=== PATIENT | male | born 1950 | race Caucasian/White ===

== ENCOUNTER → 2016-10-30 | Outpatient (CLI) | payer OTHER ==
[~2016-10-30] MED LIST: ALBU1AER9 INH; ALL100 PO; ATEN50TA8 PO; BACL10TA PO; BUPR-79 PO; CHOL400T; CHOLCAP5 PO; CLON1TAB3 PO; CLOP1TAB15 PO; FISHOIL PO; FLM4 PO; FURO80TA63 PO; HYDR-4079 PO; KLN1 PO; LEVO100T7 PO; LISI5TAB3 PO; LORA10CA2 PO; LORA10TA57 PO; LSN20 PO; MAGN400T6 PO; MECL1TAB42 PO; MISCCAP80; MISCCAP80 PO; MULT-1030 PO; MULTTAB58 PO; NEXIUM; NXM/40 PO; OMEG10007 PO; ONDA4TAB46 PO; OXYC-409; OXYC40TA34 PO; OXYM0.0592 NAE; POTA10CA28 PO; POTA10TA PO; PSYL0.524; VNTHFA/IN INH
[2016-10-30 12:50] LABS: BASO % 0.2 %; BASO ABS # 0.01 K/uL (0-0.2); COMPLETE YES; EOS % 4.2 %; HEMATOCRIT 37.3 % (42-52); IG% 0.2 %; LYMPH ABS # 1.73 K/uL (1.2-3.4); MEAN CORPUSCULAR HEMOGLOBIN 31.7 pg (25-34); MEAN CORPUSCULAR HGB CONC 35.7 g/dl (32-36); MEAN PLATELET VOLUME 10.3 fL (7.4-10.4); MONO % 10.2 %; NEUT % 42.2 %; PLATELET COUNT 162 K/uL (130-400); RED BLOOD COUNT 4.19 M/uL (4.7-6.1); WHITE BLOOD COUNT 4.02 K/uL (4.8-10.8)
[2016-10-30 13:15] LABS: ALT/SGPT 58 U/L (12-78); AST/SGOT 30 U/L (15-37); BLOOD UREA NITROGEN 19 mg/dl (7-18); BUN/CREATININE RATIO 17.3 (10-20); CALCIUM 8.6 mg/dl (8.5-10.1); CARBON DIOXIDE 24 mmol/L (21-32); CHLORIDE 104 mmol/L (98-107); CHOLESTEROL 175 mg/dl (0-200); GLUCOSE 120 mg/dl (70-99); SODIUM 139 mmol/L (136-145)
[2016-10-30 13:25] LABS: ALKALINE PHOSPHATASE 96 U/L (45-117); CHOLESTEROL/HDL RATIO 6.5; HDL CHOLESTEROL 27 mg/dl; LDL CHOLESTEROL CALCULATED 84 mg/dl; TRIGLYCERIDES 319 mg/dl (0-150); VERY LOW DENSITY LIPOPROT CALC 64 mg/dl
[2016-10-30 13:43] LABS: ESTIMATED AVERAGE GLUCOSE 114 mg/dl; HA1C FLAG Normal (Normal)
== END | disposition home or self-care (01) ==
LOC: C.LABPBG 09:04
PROVIDERS: ATTEND Internal Medicine
DX: N40.1 Benign prostatic hyperplasia with lower urinary tract symptoms (principal); E03.9 Hypothyroidism, unspecified; Z11.59 Encounter for screening for other viral diseases

== ENCOUNTER → 2016-12-04 | Day surgery (SDC) | payer OTHER ==
[2016-11-23 10:28] VITALS: BMI 31.0
[~2016-12-04] VITALS: Ht 175.3 cm; Wt 97.3 kg
[~2016-12-04] MED LIST changes: -ALBU1AER9 INH; -BUPR-79 PO; -CHOL400T; -CLON1TAB3 PO; -FISHOIL PO; -FURO80TA63 PO; +LIDOCAINE HCL 2% 2 ML VIAL (20MG/ML) ONE; -LISI5TAB3 PO; -LORA10TA57 PO; -MAGN400T6 PO; -MISCCAP80; -MULTTAB58 PO; -NEXIUM; -OXYC-409; -POTA10CA28 PO; +PROPOFOL IV EMULSION 10 MG/ML 20 ML VIAL IV ONE; -PSYL0.524; +SODIUM CHLORIDE 0.9% 500ML 500 ML IV ONE
[2016-12-04 12:12] VITALS: Ht 175.3 cm; Wt 97.3 kg
[2016-12-04 12:18] VITALS: TEMP 36.3
--- NOTE | 2016-12-04 13:01 | Endo History and Physical ---
History & Physical Date of Service: Dec 04, 2016. Chief Complaint: WEIGHT LOSS ANEMIA ABD CRAMPING Referring Physician: DR James GARCIA History of Present Illness 66 yo CM who presents for EGD and Colonoscopy secondary to weight loss, anemia, and abdominal cramping. Past Surgical History Hx Cardiac Surgery: Yes (CARDIAC CATH-NO STENTS) Hx Internal Defibrillator: No Hx Pacemaker: No Hx Abdominal Surgery: Yes (UMBILICAL HERNIA) Hx of Implantable Prosthesis: No Hx Post-Op Nausea and Vomiting: No Hx Cancer Surgery: No Hx Thoracic Surgery: No Hx Orthopedic: Yes (MULTIPLE LUMBAR VERTEBRAL FUSION, LUMBAR LAMINECTOMY) Hx Urinary Tract Surgery: No Family History None Social History Smoking Status: Never Smoker Hx Substance Use: Yes (SEE MED REC) Hx Alcohol Use: No Allergies Coded Allergies: Tetanus Toxoid (Verified Allergy, Intermediate, HIVES,SWELLING, 12/04/16) Prednisone (Verified Adverse Reaction, Intermediate, gastric ulcer, ) Current Medications Reported Home Medications Medications Dose Route/Sig Max Daily Dose Days Date Category Dose Instructions Claritin (Loratadine) 10 Mg Cap 10 Mg PO HS 11/23/16 Reported Nasal [place] (Oxymetazoline Hcl) 0.05 % Spr 1 [place] YURIY DAILY PRN 11/23/16 Reported Ventolin Hfa (Albuterol) 200 Puffs/46561 Mcg Aers 2-4 Puffs INH Q6H PRN 11/23/16 Reported Vitamin D3 (Cholecalciferol) 5,000 Unit Cap 1 Cap PO QAM 11/23/16 Reported Probiotic (Probiotic Product) 1 Cap Cap 1 Cap PO QAM 11/23/16 Reported Zofran (Ondansetron HCl) 4 Mg Tab 4 Mg PO Q8H PRN 11/23/16 Reported Meclizine Hcl 25 Mg Tab 1 Tab PO TID PRN 10 11/23/16 Reported Centrum Men (Multiple Vitamins W/ Minerals) 1 Tab Tab 1 Tab PO QAM 11/23/16 Reported [place]-3 (Fish Oil) 1 Ea Cap 1 Cap PO BID 11/23/16 Reported [place] 10MG/325MG (Acetaminophen/Hydrocodone Bitart) Tab 1-2 Tabs PO Q4H PRN 11/23/16 Reported PRN PAIN Oxycontin (Oxycodone Hcl) 40 Mg Tab 40 Mg PO TID 11/23/16 Reported Nexium (Esomeprazole Magnesium) 40 Mg Capcr 40 Mg PO BID 11/23/16 Reported Levothyroxine Sodium 100 Mcg Tab 1 Tab PO QAM 90 11/23/16 Reported K-Tabs (Potassium Chloride) 10 Meq Tab 1 Tab PO BID 11/23/16 Reported Lisinopril 20 Mg Tab 1 Tab PO QAM 11/23/16 Reported Tamsulosin HCl 0.4 Mg Cap 1 Cap PO HS 11/23/16 Reported Lioresal (Baclofen) 10 Mg Tab 10 Mg PO TID 11/23/16 Reported Plavix (Clopidogrel Bisulfate) 75 Mg Tab 75 Mg PO QPM 12/27/08 Reported Tenormin (Atenolol) 50 Mg Tab 50 Mg PO BID 12/27/08 Reported Zyloprim * (Allopurinol) 100 Mg Tab 100 Mg PO BID 12/27/08 Reported Vital Signs Weight (Kilograms): 97.27 Height (Feet): 5 Height (Inches): 9 Date Time Temp Pulse Resp B/P Pulse Ox O2 Delivery O2 Flow Rate FiO2 12/04/16 12:18 36.3 71 20 180/90 97 Room Air Physical Exam General Appearance: WD/WN, no apparent distress Respiratory/Chest: Auscultation: breath sounds normal Cardiovascular: Heart Auscultation: RRR Abdomen: Bowel Sounds: normal Inspection & Palpation: soft, non-distended, no tenderness, guarding & rebound Assessment and Plan Assessment: 66 yo CM who presents for EGD and Colonoscopy secondary to weight loss, anemia, and abdominal cramping. Plan: Proceed with EGD and colonoscopy.
--- NOTE | 2016-12-04 13:27 | Discharge Instructions ---
Endoscopy Patient Instructions Date / Procedure(s) Performed Dec 04, 2016. Colonoscopy, EGD Allergy Information Coded Allergies: Tetanus Toxoid (Verified Allergy, Intermediate, HIVES,SWELLING, 12/04/16) Prednisone (Verified Adverse Reaction, Intermediate, gastric ulcer, ) Discharge Date / Findings Dec 04, 2016. EGD: Gastritis s/p biopsies Colonoscopy: Diverticulosis and Internal hemorrhoids Medication Instructions Stopped Medication(s): PLAVIX AND FISH OIL Restart Stopped Medication(s): OK to resume all medications today as prescribed Reported Home Medications Medications Dose Route/Sig Max Daily Dose Days Date Category Dose Instructions Claritin (Loratadine) 10 Mg Cap 10 Mg PO HS 11/23/16 Reported Nasal [place] (Oxymetazoline Hcl) 0.05 % Spr 1 [place] YURIY DAILY PRN 11/23/16 Reported Ventolin Hfa (Albuterol) 200 Puffs/32001 Mcg Aers 2-4 Puffs INH Q6H PRN 11/23/16 Reported Vitamin D3 (Cholecalciferol) 5,000 Unit Cap 1 Cap PO QAM 11/23/16 Reported Probiotic (Probiotic Product) 1 Cap Cap 1 Cap PO QAM 11/23/16 Reported Zofran (Ondansetron HCl) 4 Mg Tab 4 Mg PO Q8H PRN 11/23/16 Reported Meclizine Hcl 25 Mg Tab 1 Tab PO TID PRN 10 11/23/16 Reported Centrum Men (Multiple Vitamins W/ Minerals) 1 Tab Tab 1 Tab PO QAM 11/23/16 Reported [place]-3 (Fish Oil) 1 Ea Cap 1 Cap PO BID 11/23/16 Reported [place] 10MG/325MG (Acetaminophen/Hydrocodone Bitart) Tab 1-2 Tabs PO Q4H PRN 11/23/16 Reported PRN PAIN Oxycontin (Oxycodone Hcl) 40 Mg Tab 40 Mg PO TID 11/23/16 Reported Nexium (Esomeprazole Magnesium) 40 Mg Capcr 40 Mg PO BID 11/23/16 Reported Levothyroxine Sodium 100 Mcg Tab 1 Tab PO QAM 90 11/23/16 Reported K-Tabs (Potassium Chloride) 10 Meq Tab 1 Tab PO BID 11/23/16 Reported Lisinopril 20 Mg Tab 1 Tab PO QAM 11/23/16 Reported Tamsulosin HCl 0.4 Mg Cap 1 Cap PO HS 11/23/16 Reported Lioresal (Baclofen) 10 Mg Tab 10 Mg PO TID 11/23/16 Reported Plavix (Clopidogrel Bisulfate) 75 Mg Tab 75 Mg PO QPM 12/27/08 Reported Tenormin (Atenolol) 50 Mg Tab 50 Mg PO BID 12/27/08 Reported Zyloprim * (Allopurinol) 100 Mg Tab 100 Mg PO BID 12/27/08 Reported Provider Instructions Activity Restrictions - No exercising or heavy lifting for 24 hours. - Do not drink alcohol the day of the procedure. - Do not drive a car or operate machinery until the day after the procedure. - Do not make any important decisions or sign important papers in 24 hours after the procedure. Following Day: - Return to full activity which may include returning to work/school. Diet Start your diet with liquids and light foods (jello, soup, juice, toast). Then eat your usual diet if not nauseated. Treatment For Common After Affects For mild abdominal pain, bloating, or excessive gas: - Rest - Eat lightly - Lie on right side Follow-Up Information Follow-up with DR James GARCIA as scheduled Anesthesia Information What You Should Know You have had a procedure that required some medicine to reduce anxiety and discomfort. This treatment is called moderate sedation. After receiving the treatment, you may be sleepy, but you will be able to breathe on your own. The effects of the treatment may last for several hours. Follow these instructions along with Activity/Diet recommendations noted above: * Do NOT do anything where dizziness or clumsiness would be dangerous. * Rest quietly at home today, then you can be up and about tomorrow. * Have a responsible person stay with you the rest of today. * You may have had an I.V. today. If so, you may take the dressing off later today. Recommendations Call your doctor if: * Trouble breathing * Continuous vomiting for more than 24 hours * Temperature above 101 degrees * Severe abdominal pain or bloating * Pain not relieved by pain medicine ordered * There is increased drainage or redness from any incision * A large amount of rectal bleeding greater than 2-3 tablespoons. (If you had a polyp/s removed or have hemorrhoids, a small amount of blood - from the rectum is to be expected.) * You have any unanswered questions or concerns. IN THE EVENT OF A SERIOUS EMERGENCY, GO TO THE NEAREST EMERGENCY ROOM Your discharge instructions were prepared by provider Jordan House. Patient Instructions Signature Page Jonathan Mobley Patient (or Guardian) Signature/Date: I have read and understand the instructions given to me by my caregivers. Caregiver/RN/Doctor Signature/Date: The above-named patient and/or guardian has received patient instructions on this date. + Original Patient Signature Page (only) stays with chart. Please make copy for patient.
--- NOTE | 2016-12-04 13:29 | GI REPORT ---
Procedure Date: 12/04/2016 12:46 PM Procedure: Upper GI endoscopy Indications: Iron deficiency anemia, Weight loss Medicines: Monitored Anesthesia Care Complications: No immediate complications. Estimated Blood Loss: Estimated blood loss: none. Procedure: Pre-Anesthesia Assessment: - Prior to the procedure, a History and Physical was performed, and patient medications and allergies were reviewed. The patient's tolerance of previous anesthesia was also reviewed. The risks and benefits of the procedure and the sedation options and risks were discussed with the patient. All questions were answered, and informed consent was obtained. Prior Anticoagulants: The patient has taken Plavix (clopidogrel), last dose was 5 days prior to procedure. ASA Grade Assessment: III - A patient with severe systemic disease. After reviewing the risks and benefits, the patient was deemed in satisfactory condition to undergo the procedure. After obtaining informed consent, the endoscope was passed under direct vision. Throughout the procedure, the patient's blood pressure, pulse, and oxygen saturations were monitored continuously. The scope was introduced through the mouth, and advanced to the second part of duodenum. The upper GI endoscopy was accomplished without difficulty. The patient tolerated the procedure well. Findings: The esophagus was normal. Localized mild inflammation characterized by erythema was found in the gastric antrum. Biopsies were taken with a cold forceps for histology. The examined duodenum was normal. Impression: - Normal esophagus. - Gastritis. Biopsied. - Normal examined duodenum. Recommendation: - Resume previous diet. - Continue present medications. - Await pathology results. - Return to primary care physician as previously scheduled. Jordan House DO 12/04/2016 1:29:54 PM This report has been signed electronically. Note Initiated On: 12/04/2016 12:46 PM I attest to the content of the Intraoperative Record and orders documented therein, exceptions below
--- NOTE | 2016-12-04 13:32 | GI REPORT ---
Procedure Date: 12/04/2016 1:10 PM Procedure: Colonoscopy Indications: Iron deficiency anemia, Weight loss Medicines: Monitored Anesthesia Care Complications: No immediate complications. Estimated Blood Loss: Estimated blood loss: none. Procedure: Pre-Anesthesia Assessment: - Prior to the procedure, a History and Physical was performed, and patient medications and allergies were reviewed. The patient's tolerance of previous anesthesia was also reviewed. The risks and benefits of the procedure and the sedation options and risks were discussed with the patient. All questions were answered, and informed consent was obtained. Prior Anticoagulants: The patient has taken Plavix (clopidogrel), last dose was 5 days prior to procedure. ASA Grade Assessment: III - A patient with severe systemic disease. After reviewing the risks and benefits, the patient was deemed in satisfactory condition to undergo the procedure. After I obtained informed consent, the scope was passed under direct vision. Throughout the procedure, the patient's blood pressure, pulse, and oxygen saturations were monitored continuously. The scope was introduced through the anus and advanced to the terminal ileum. The colonoscopy was performed without difficulty. The patient tolerated the procedure well. The quality of the bowel preparation was good. The terminal ileum, ileocecal valve, appendiceal orifice, and rectum were photographed. Findings: Multiple small-mouthed diverticula were found in the sigmoid colon. Non-bleeding internal hemorrhoids were found during retroflexion. The hemorrhoids were small. Impression: - Diverticulosis in the sigmoid colon. - Non-bleeding internal hemorrhoids. - No specimens collected. Recommendation: - Resume previous diet. - Continue present medications. - Repeat colonoscopy for surveillance based on pathology results. - Return to primary care physician as previously scheduled. Jordan House, 12/04/2016 1:32:09 PM This report has been signed electronically. Note Initiated On: 12/04/2016 1:10 PM I attest to the content of the Intraoperative Record and orders documented therein, exceptions below
--- NOTE | 2016-12-04 13:38 | Anesthesiology Progress Note ---
Anesthesia Post Op Note Date & Time Dec 04, 2016 at 13:38 Vital Signs Pain Intensity: 0 Vital Signs Past 12 Hours Date Time Temp Pulse Resp B/P Pulse Ox O2 Delivery O2 Flow Rate FiO2 12/04/16 13:27 75 20 148/72 95 Room Air 12/04/16 12:18 36.3 71 20 180/90 97 Room Air Notes Mental Status: alert / awake / arousable, participated in evaluation Pt Amnestic to Procedure: Yes Nausea / Vomiting: adequately controlled Pain: adequately controlled Airway Patency, RR, SpO2: stable & adequate BP & HR: stable & adequate Hydration State: stable & adequate Anesthetic Complications: no major complications apparent
[2016-12-04 13:56] VITALS: BP 163/78; PULSE 72; O2SAT 97
== END | disposition home or self-care (01) ==
LOC: C.GI 11:18
PROVIDERS: ATTEND Internal Medicine
DX: K31.89 Other diseases of stomach and duodenum (principal); K29.70 Gastritis, unspecified, without bleeding; D50.9 Iron deficiency anemia, unspecified; R63.4 Abnormal weight loss; K57.30 Diverticulosis of large intestine without perforation or abscess without bleeding; K64.8 Other hemorrhoids

== ENCOUNTER 2016-12-07 20:14 | Observation (INO) | payer OTHER ==
[~2016-12-07] VITALS: Ht 175.3 cm; Wt 100.0 kg
[~2016-12-07 20:14] MED LIST changes: -KLN1 PO; -LIDOCAINE HCL 2% 2 ML VIAL (20MG/ML) ONE; -PROPOFOL IV EMULSION 10 MG/ML 20 ML VIAL IV ONE; -SODIUM CHLORIDE 0.9% 500ML 500 ML IV ONE
[2016-12-07 21:11] LABS: BASO % 0.4 %; BASO ABS # 0.03 K/uL (0-0.2); COMPLETE YES; EOS % 4.6 %; HEMATOCRIT 40.7 % (42-52); IG% 0.1 %; LYMPH % 23.4 %; LYMPH ABS # 1.59 K/uL (1.2-3.4); MEAN CELL VOLUME 85.7 fL (80-100); MEAN CORPUSCULAR HEMOGLOBIN 31.2 pg (25-34); MEAN CORPUSCULAR HGB CONC 36.4 g/dl (32-36); MEAN PLATELET VOLUME 9.5 fL (7.4-10.4); MONO % 7.5 %; PLATELET COUNT 196 K/uL (130-400); RED BLOOD COUNT 4.75 M/uL (4.7-6.1)
[2016-12-07 21:22] LABS: PROTHROMBIN TIME (PATIENT) 10.9 SECONDS (9.0-12.0)
[2016-12-07] MEDS ORDERED: NITROGLYCERIN OINT 2% 1GM PACKET EXT ONE (21:30)
[2016-12-07 21:31] LABS: BUN/CREATININE RATIO 15.1 (10-20); CREATININE 1.3 mg/dl (0.60-1.40); POTASSIUM 4.1 mmol/L (3.5-5.1)
[2016-12-07 21:33] LABS: ALB/GLOB RATIO 1.1 (0.9-2)
--- NOTE | 2016-12-07 21:44 | DIAGNOSTIC IMAGING REPORT ---
CHEST ONE VIEW PORTABLE CLINICAL HISTORY: SOB dyspnea COMPARISON STUDY: 09/09/2012 FINDINGS: The bones soft tissues and hemidiaphragms are normal. The cardiomediastinal silhouette is normal. The lungs are clear. The pulmonary vasculature is normal. IMPRESSION: Negative chest. Electronically signed by: Markie Shoemaker M.D. 12/07/2016 9:42 PM Dictated Date/Time: 12/07/2016 9:42 PM
[2016-12-07] MEDS ORDERED: ALUMINUM/MAGNESIUM/SIMETH (MAALOX MAX) 30 ML UDC PO PRN (22:15)
[2016-12-07] MEDS ORDERED: HYDROCODONE/ACETAMI 10/325 TAB PO PRN (22:15)
[2016-12-07] MEDS ORDERED: NITROGLYCERIN 0.4 MG SL PER TAB CHARGE SL PRN (22:15)
[2016-12-07] MEDS ORDERED: ONDANSETRON INJ 2 MG/ML 2 ML VIAL IV PRN (22:15)
[2016-12-07] MEDS ORDERED: MoRPHine SULFATE 2 MG/ML CARP IV PRN (22:15)
[2016-12-07] MEDS ORDERED: MECLIZINE HCL 12.5 MG TAB PO PRN (22:15)
[2016-12-07] MEDS ORDERED: POLYETHYLENE (MIRALAX) 17 GM PACK PO PRN (22:15)
[2016-12-07] MEDS ORDERED: ALBUTEROL HFA 8 GM INHALER INH PRN (22:15)
[2016-12-07] MEDS ORDERED: ACETAMINOPHEN 325 MG TAB PO PRN (22:15)
[2016-12-07] MEDS ORDERED: MAGNESIUM HYDROXIDE SUSP 30 ML UDC PO PRN (22:15)
--- NOTE | 2016-12-07 22:27 | History and Physical ---
History & Physical Date & Time of Service: Dec 07, 2016 at 22:22 Chief Complaint: SOB Primary Care Physician: Yaya Montilla M.D. History of Present Illness Source: patient 66 y/o M w/Hx HTN, HPL, multiple TIAs - presents with intermittent L sided CP x 1 day associated with SOB. Denies N/V, diaphoresis or lightheadedness, denies radiation of the pain. Past Medical/Surgical History Medical Problems: (1) ANGINA PECTORIS NEC/NOS Status: Chronic (2) ANKYLOSING SPONDYLITIS Status: Chronic (3) ANXIETY STATE NOS Status: Chronic (4) ATROPHIC GASTRITIS, WITHOUT MENTION OF HEMORRHAGE Status: Chronic (5) CERVICAL DISC DEGEN Status: Chronic (6) CHRONIC LIVER DIS NEC Status: Chronic (7) DEPRESSIVE DISORDER NEC Status: Chronic (8) DIAB ROSHAN WO COMPL, TYPE II OR UNSPEC TYPE, NOT UNCNTRLD Status: Chronic (9) DIAPHRAGMATIC HERNIA Status: Chronic (10) GOUT NOS Status: Chronic (11) HYPERLIPIDEMIA NEC/NOS Status: Chronic (12) HYPERTENSION NOS Status: Chronic (13) HYPERTROPHY (BENIGN) OF PROSTATE W/O URINARY OBST & OTH LUTS Status: Chronic (14) IDIOPATHIC SCOLIOSIS Status: Chronic (15) PERSONAL HX OF TIA,& 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 (16) POSTLAMINECT SYND-LUMBAR Status: Chronic (17) REFLUX ESOPHAGITIS Status: Chronic (18) SPINAL STENOSIS, LUMBAR REG, W/OUT NEUROGENIC CLAUDICATION Status: Chronic (19) STOMACH ULCER NOS Status: Chronic Family History Heart disease Early CAD Social History Smoking Status: Never Smoker Marital Status: Immunizations History of Influenza Vaccine: Yes History of Tetanus Vaccine?: ALLERGIC History of Pneumococcal: Yes History of Hepatitis B Vaccine: No Multi-Drug Resistant Organisms History of MDRO: No Allergies Coded Allergies: Tetanus Toxoid (Verified Allergy, Intermediate, HIVES,SWELLING, 12/04/16) Prednisone (Verified Adverse Reaction, Intermediate, gastric ulcer, ) Home Medications Scheduled Allopurinol (Zyloprim *), 100 MG PO BID Atenolol (Tenormin), 50 MG PO BID Baclofen (Lioresal), 10 MG PO TID Cholecalciferol (Vitamin D3), 1 CAP PO QAM Clopidogrel (Plavix), 75 MG PO QPM Esomeprazole Magnesium (Nexium), 40 MG PO BID Fish Oil ([place]-3), 1 CAP PO BID Levothyroxine Sodium (Levothyroxine Sodium), 1 TAB PO QAM Lisinopril (Lisinopril), 1 TAB PO QAM Loratadine (Claritin), 10 MG PO HS Multiple Vitamins W/ Minerals (Centrum Men), 1 TAB PO QAM Oxycodone Hcl (Oxycontin), 40 MG PO TID Potassium Chloride (K-Tabs), 1 TAB PO BID Probiotic Product (Probiotic), 1 CAP PO QAM Tamsulosin HCl (Tamsulosin HCl), 1 CAP PO HS Scheduled PRN Albuterol Hfa (Ventolin Hfa), 2-4 PUFFS INH Q6H PRN for Shortness of Breath Hydrocodone/Acetaminophen 10MG/325MG ([place] 10MG/325MG), 1-2 TABS PO Q4H PRN for Pain Meclizine Hcl (Meclizine Hcl), 1 TAB PO TID PRN for [place]IG[place] Ondansetron Hcl (Zofran), 4 MG PO Q8H PRN for Nausea Oxymetazoline Hcl (Nasal [place]), 1 [place] YURIY DAILY PRN for PRN Review of Systems Constitutional: No chills, No fever, No sweats Eyes: No eye pain, No worsening of vision ENT: No hearing loss, No nasal symptoms, No unusual epistaxis Respiratory: + shortness of breath, No cough, No sputum, No wheezing Cardiovascular: + chest pain, No PND, No orthopnea Abdomen: No nausea, No pain, No vomiting Musculoskeletal: No joint pain, No muscle pain Genitourinary - Male: No dysuria, No hematuria, No urinary frequency, No urinary urgency Neurologic: No memory loss, No paralysis, No weakness Psychiatric: No depression symptoms Endocrine: No fatigue Hematologic / Lymphatic: No abnormal bleeding/bruising Integumentary: No rash Allergic / Immunologic: No environmental allergies Physical Exam Vital Signs Date Time Temp Pulse Resp B/P Pulse Ox O2 Delivery O2 Flow Rate FiO2 12/07/16 22:05 55 18 147/89 94 Room Air 12/07/16 21:35 54 12 145/81 96 Room Air 12/07/16 21:30 54 12 96 12/07/16 21:00 56 14 93 12/07/16 20:53 58 12/07/16 20:18 37.1 72 18 114/76 97 Room Air General Appearance: WD/WN, no apparent distress Head: normocephalic, atraumatic Eyes: normal inspection, PERRL, EOMI ENT: normal ENT inspection, hearing grossly normal, TMs normal, pharynx normal Neck: supple, no adenopathy, thyroid normal, no JVD Respiratory/Chest: chest non-tender, lungs clear, normal breath sounds, no respiratory distress, no accessory muscle use Cardiovascular: regular rate, rhythm, no edema, no gallop, no JVD, no murmur, normal peripheral pulses Abdomen/GI: normal bowel sounds, non tender, soft Back: normal inspection, no CVA tenderness, no muscle spasm, normal range of motion Extremities/Musculoskelatal: normal inspection, no calf tenderness, normal capillary refill, no pedal edema, normal range of motion 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, no motor/sensory deficits, alert, normal mood/affect, normal reflexes, oriented x 3 Skin: normal color, warm/dry, no rash Diagnostics Laboratory Results Results Past 24 Hours Test 12/07/16 20:45 12/07/16 21:34 Range/Units White Blood Count 6.80 4.8-10.8 K/uL Red Blood Count 4.75 4.7-6.1 M/uL Hemoglobin 14.8 14.0-18.0 g/dL Hematocrit 40.7 42-52 % Mean Corpuscular Volume 85.7 80-100 fL Mean Corpuscular Hemoglobin 31.2 25-34 pg Mean Corpuscular Hemoglobin Concent 36.4 32-36 g/dl Platelet Count 196 130-400 K/uL Mean Platelet Volume 9.5 7.4-10.4 fL Neutrophils (%) (Auto) 64.0 % Lymphocytes (%) (Auto) 23.4 % Monocytes (%) (Auto) 7.5 % Eosinophils (%) (Auto) 4.6 % Basophils (%) (Auto) 0.4 % Neutrophils # (Auto) 4.35 1.4-6.5 K/uL Lymphocytes # (Auto) 1.59 1.2-3.4 K/uL Monocytes # (Auto) 0.51 0.11-0.59 K/uL Eosinophils # (Auto) 0.31 0-0.5 K/uL Basophils # (Auto) 0.03 0-0.2 K/uL RDW Standard Deviation 41.3 36.4-46.3 fL RDW Coefficient of Variation 13.3 11.5-14.5 % Immature Granulocyte % (Auto) 0.1 % Immature Granulocyte # (Auto) 0.01 0.00-0.02 K/uL Prothrombin Time 10.9 9.0-12.0 SECONDS Prothromb Time International Ratio 1.0 0.9-1.1 Activated Partial Thromboplast Time 25.4 21.0-31.0 SECONDS Partial Thromboplastin Ratio 1.0 Sodium Level 140 136-145 mmol/L Potassium Level 4.1 3.5-5.1 mmol/L Chloride Level 106 98-107 mmol/L Carbon Dioxide Level 26 21-32 mmol/L Anion Gap 8.0 3-11 mmol/L Blood Urea Nitrogen 20 7-18 mg/dl Creatinine 1.30 0.60-1.40 mg/dl Est Creatinine Clear Calc Drug Dose 66.0 ml/min Estimated GFR () 65.4 Estimated GFR (Non- 56.5 BUN/Creatinine Ratio 15.1 10-20 Random Glucose 133 70-99 mg/dl Calcium Level 9.0 8.5-10.1 mg/dl Total Bilirubin 0.3 0.2-1 mg/dl Aspartate Amino Transf (AST/SGOT) 28 15-37 U/L Alanine Aminotransferase (ALT/SGPT) 54 12-78 U/L Alkaline Phosphatase 106 45-117 U/L Total Protein 7.4 6.4-8.2 gm/dl Albumin 3.8 3.4-5.0 gm/dl Globulin 3.6 2.5-4.0 gm/dl Albumin/Globulin Ratio 1.1 0.9-2 Bedside Troponin I 0.000 0-0.045 ng/ml EKG NSR - first degree AV block Impression Assessment and Plan 66 y/o M w/Hx HTN, HPL, multiple TIAs - presents with intermittent L sided CP x 1 day associated with SOB. Denies N/V, diaphoresis or lightheadedness, denies radiation of the pain. Level of Care Telemetry Resuscitation Status FULL RESUSCITATION VTE Prophylaxis VTE Risk Assessment Done? Y/N: Yes Risk Level: Moderate Given or contraindicated: Unfractionated heparin SQ
--- NOTE | 2016-12-07 23:12 | EMERGENCY ROOM VISIT NOTE ---
History Report prepared by Guillermina: Levy Neumann Under the Supervision of: Dr. Al Florence M.D. First contact with patient: 21:14 Chief Complaint: SHORTNESS OF BREATH Stated Complaint: SOB Nursing Triage Summary: pt c/o sob today, heavy feeling in chest and htn History of Present Illness The patient is a 66 year old male who presents to the Emergency Room with complaints of intermittent left-sided chest pressure since yesterday. The patient had the pain when he woke up this morning. The pain is not exertional and is rated 5/10 in severity. The patient was also short of breath at home today. He notes that his blood pressure was increasing today which he thinks could be due to nerves. The patient denies diaphoresis or nausea. He also denies any recent fevers or cold symptoms. The patient had nitroglycerin at home that was leftover from previous angina episodes. He is not on any erectile dysfunction drugs. He had a catheterization in 2004 that was normal for his age. He has a family history of heart disease. His father had heart problems in his 30s. His mother also had heart problems but in her 50s. He has a history of hypertension and denies any history of diabetes. He follows up with Dr. Montilla. Source of History: patient Onset: yesterday Position: chest (left) Symptom Intensity: 5/10 Quality: pressure Timing: intermittent Associated Symptoms: + SOB, No diaphoresis, No fevers, No nausea Review of Systems See HPI for pertinent positives & negatives. A total of 10 systems reviewed and were otherwise negative. 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 (18) REFLUX ESOPHAGITIS (19) SPINAL STENOSIS, LUMBAR REG, W/OUT NEUROGENIC CLAUDICATION (20) STOMACH ULCER NOS Family History Heart disease Social History Smoking Status: Never Smoker Marital Status: Housing Status: lives with family Current/Historical Medications Scheduled Allopurinol (Zyloprim *), 100 MG PO BID Atenolol (Tenormin), 50 MG PO BID Baclofen (Lioresal), 10 MG PO TID Cholecalciferol (Vitamin D3), 1 CAP PO QAM Clopidogrel (Plavix), 75 MG PO QPM Esomeprazole Magnesium (Nexium), 40 MG PO BID Fish Oil ([place]-3), 1 CAP PO BID Levothyroxine Sodium (Levothyroxine Sodium), 1 TAB PO QAM Lisinopril (Lisinopril), 1 TAB PO QAM Loratadine (Claritin), 10 MG PO HS Multiple Vitamins W/ Minerals (Centrum Men), 1 TAB PO QAM Oxycodone Hcl (Oxycontin), 40 MG PO TID Potassium Chloride (K-Tabs), 1 TAB PO BID Probiotic Product (Probiotic), 1 CAP PO QAM Tamsulosin HCl (Tamsulosin HCl), 1 CAP PO HS Scheduled PRN Albuterol Hfa (Ventolin Hfa), 2-4 PUFFS INH Q6H PRN for Shortness of Breath Hydrocodone/Acetaminophen 10MG/325MG ([place] 10MG/325MG), 1-2 TABS PO Q4H PRN for Pain Meclizine Hcl (Meclizine Hcl), 1 TAB PO TID PRN for VERTIGO Ondansetron Hcl (Zofran), 4 MG PO Q8H PRN for Nausea Oxymetazoline Hcl (Nasal [place]), 1 SPRAY YURIY DAILY PRN for PRN Allergies Coded Allergies: Tetanus Toxoid (Verified Allergy, Intermediate, HIVES,SWELLING, 12/04/16) Prednisone (Verified Adverse Reaction, Intermediate, gastric ulcer, ) Physical Exam Vital Signs Date Time Temp Pulse Resp B/P Pulse Ox O2 Delivery O2 Flow Rate FiO2 12/07/16 22:05 55 18 147/89 94 Room Air 12/07/16 21:35 54 12 145/81 96 Room Air 12/07/16 21:30 54 12 96 12/07/16 21:00 56 14 93 12/07/16 20:53 58 12/07/16 20:18 37.1 72 18 114/76 97 Room Air Physical Exam Constitutional: Vital signs reviewed. Eyes: Pupils are equal round reactive to light. Conjunctiva are noninjected. ENT: Pharynx is clear without erythema or exudate. Mucous membranes are moist. Neck supple without meningeal signs. Respiratory: Clear to auscultation bilaterally. Breath sounds are equal bilaterally. Cardiovascular: Regular rate and rhythm. No rubs or gallops. GI: Soft, nondistended and nontender. Bowel sounds are present. Musculoskeletal: No peripheral edema. No lower extremity tenderness. Integumentary: No cyanosis. Neurological: The patient is awake and alert. No focal deficits. Psychiatric: Normal affect. Medical Decision & Procedures ER Provider Diagnostic Interpretation: X-ray results as stated below per interpretation by me and the radiologist: CHEST ONE VIEW PORTABLE CLINICAL HISTORY: SOB dyspnea COMPARISON STUDY: 09/09/2012 FINDINGS: The bones soft tissues and hemidiaphragms are normal. The cardiomediastinal silhouette is normal. The lungs are clear. The pulmonary vasculature is normal. IMPRESSION: Negative chest. Electronically signed by: Markie Shoemaker M.D. 12/07/2016 9:42 PM Dictated Date/Time: 12/07/2016 9:42 PM Laboratory Results 12/07/16 20:45 Red Blood Count 4.75, Mean Corpuscular Volume 85.7, Mean Corpuscular Hemoglobin 31.2, Mean Corpuscular Hemoglobin Concent 36.4, Mean Platelet Volume 9.5, Neutrophils (%) (Auto) 64.0, Lymphocytes (%) (Auto) 23.4, Monocytes (%) (Auto) 7.5, Eosinophils (%) (Auto) 4.6, Basophils (%) (Auto) 0.4, Neutrophils # (Auto) 4.35, Lymphocytes # (Auto) 1.59, Monocytes # (Auto) 0.51, Eosinophils # (Auto) 0.31, Basophils # (Auto) 0.03 12/07/16 20:45 Test 12/07/16 20:45 12/07/16 21:34 White Blood Count 6.80 K/uL (4.8-10.8) Red Blood Count 4.75 M/uL (4.7-6.1) Hemoglobin 14.8 g/dL (14.0-18.0) Hematocrit 40.7 % (42-52) Mean Corpuscular Volume 85.7 fL (80-100) Mean Corpuscular Hemoglobin 31.2 pg (25-34) Mean Corpuscular Hemoglobin Concent 36.4 g/dl (32-36) Platelet Count 196 K/uL (130-400) Mean Platelet Volume 9.5 fL (7.4-10.4) Neutrophils (%) (Auto) 64.0 % Lymphocytes (%) (Auto) 23.4 % Monocytes (%) (Auto) 7.5 % Eosinophils (%) (Auto) 4.6 % Basophils (%) (Auto) 0.4 % Neutrophils # (Auto) 4.35 K/uL (1.4-6.5) Lymphocytes # (Auto) 1.59 K/uL (1.2-3.4) Monocytes # (Auto) 0.51 K/uL (0.11-0.59) Eosinophils # (Auto) 0.31 K/uL (0-0.5) Basophils # (Auto) 0.03 K/uL (0-0.2) RDW Standard Deviation 41.3 fL (36.4-46.3) RDW Coefficient of Variation 13.3 % (11.5-14.5) Immature Granulocyte % (Auto) 0.1 % Immature Granulocyte # (Auto) 0.01 K/uL (0.00-0.02) Prothrombin Time 10.9 SECONDS (9.0-12.0) Prothromb Time International Ratio 1.0 (0.9-1.1) Activated Partial Thromboplast Time 25.4 SECONDS (21.0-31.0) Partial Thromboplastin Ratio 1.0 Anion Gap 8.0 mmol/L (3-11) Est Creatinine Clear Calc Drug Dose 66.0 ml/min Estimated GFR () 65.4 Estimated GFR (Non- 56.5 BUN/Creatinine Ratio 15.1 (10-20) Calcium Level 9.0 mg/dl (8.5-10.1) Total Bilirubin 0.3 mg/dl (0.2-1) Aspartate Amino Transf (AST/SGOT) 28 U/L (15-37) Alanine Aminotransferase (ALT/SGPT) 54 U/L (12-78) Alkaline Phosphatase 106 U/L (45-117) Troponin I < 0.015 ng/ml (0-0.045) Total Protein 7.4 gm/dl (6.4-8.2) Albumin 3.8 gm/dl (3.4-5.0) Globulin 3.6 gm/dl (2.5-4.0) Albumin/Globulin Ratio 1.1 (0.9-2) Bedside Troponin I 0.000 ng/ml (0-0.045) Laboratory results as reviewed by me. Medications Administered Medications (Trade) Dose Ordered Sig/Martir Route Start Time Stop Time Status Last Admin Dose Admin Nitroglycerin (Nitroglycerin 2% Oint) 1 inch NOW ONCE EXT 12/07/16 21:30 12/07/16 21:31 DC 12/07/16 21:35 1 INCH ECG Indication: chest pain Rate (beats per minute): 59 Rhythm: sinus bradycardia Findings: 1st degree AV block, Q waves (lead III), no ectopy, other (no ST elevation) Change: Q waves and 1st degree AV block were present on EKG from August 2012. ED Course 2116: The patient was evaluated in room C5. A complete history and physical exam was performed. 2129: Nitroglycerin 1 inch EXT. 2139: Spoke with Dr. Bruce, [facility]. The patient will be evaluated. 2149: Checked on the patient. His chest pressure is almost gone. I discussed the test results. Medical Decision This is a 66-year-old male who presents with chest discomfort. Differential diagnosis includes unstable angina, IN, pericarditis, pneumonia, GERD, anxiety. I did perform a limited focused review of portions of the patient's old chart on the electronic medical record. The patient had an EGD on the that showed gastritis. I did evaluate the patient as noted above. The patient is presenting with intermittent chest pressure since yesterday. He does have risk factors for cardiac disease including family history and hypertension. IV access was established. The patient was placed on a continuous monitor tech. I did treat patient with nitroglycerin paste. I did order and personally review the patient's 12-lead EKG and chest x-ray as described above. His 12-lead EKG does not show any acute ischemic changes. I did order and review the patient's blood work as noted in the electronic medical record. Troponin is negative. I did reassess the patient. He states that his chest pain is almost completely relieved with nitroglycerin. I did discuss the test results with the patient and recommended hospitalization for further care and evaluation. I did discuss case with the hospitalist and corrections caseworker. Consults Time Called: 2129 Consulting Physician: Dr. Bruce, [facility]. Returned Call: [phone]: Spoke with Dr. Bruce [facility]. The patient will be evaluated. Impression Primary Impression: Left sided chest pain Scribe Attestation The scribe's documentation has been prepared under my direct and personally reviewed by me in its entirety. I confirm that the note above accurately reflects all work, treatment, procedures, and medical decision making performed by me. Departure Information Dispostion Being Evaluated By Hospitalist Referrals Yaya Montilla M.D. (PCP) Patient Instructions My [facility]
[2016-12-08] VITALS (7 sets, daily range): BP systolic 104–153; BP diastolic 64–81; PULSE 49–100; TEMP 36.6–36.8; O2SAT 94–98; Ht 175.3 cm; Wt 100.0 kg
--- NOTE | 2016-12-08 01:03 | HISTORY & PHYSICAL EXAMINATION ---
DATE OF ADMISSION: 12/07/2016 REASON FOR ADMISSION: Chest pain. HISTORY OF PRESENT ILLNESS: This is a 66-year-old male with a history of hypertension, hypothyroidism, hyperlipidemia and previous TIAs. The patient developed intermittent left-sided chest pain starting this morning, which he describes as a pressure-like sensation. The pain was nonradiating, associated with shortness of breath. Denies any nausea, vomiting or diaphoresis. He states that he had a normal cardiac catheterization in 2004 and a normal stress test within the last 5 years. It is also noted that the patient had a colonoscopy and endoscopy in 11/2015, which he states was normal other than colitis and mild gastritis. He stated that when he had labs drawn in early October, he was noted to be anemic with hemoglobin in the low 13s; however, it is 14.8 at the time of admission without taking iron or any other interventions. PAST MEDICAL HISTORY: 1. Hypertension. 2. Hyperlipidemia. 3. BPH. 4. Gout. 5. TIAs. 6. Hypothyroidism. 7. The patient has had several back surgeries including lumbar and cervical laminectomies and fusion. 8. He states that he was treated for diabetes for a total of 10 years but did not actually have the disease. He was apparently misdiagnosed by his primary physician. MEDICATIONS: As follows: 1. Albuterol p.r.n. 2. Allopurinol 100 mg b.i.d. 3. Atenolol 50 mg b.i.d. 4. Baclofen 10 mg t.i.d. 5. Vitamin D 5000 units q.a.m. 6. Plavix 75 mg q.p.m. 7. Nexium 40 mg b.i.d. 8. Fish oil 1 capsule b.i.d. 9. [place] 10/325 one to two tablets q. 4 hours. 10. Levothyroxine 100 mcg daily. 11. Lisinopril 20 mg daily. 12. Meclizine 25 mg t.i.d. p.r.n. 13. OxyContin 40 mg p.o. t.i.d. 14. Potassium chloride 10 mEq b.i.d. 15. Probiotic daily. 16. Flomax 0.4 mg at bedtime. SOCIAL HISTORY: The patient does not drink or smoke. FAMILY HISTORY: Reviewed and noncontributory. REVIEW OF SYSTEMS: GENERAL: No fevers or rigors described. CARDIOVASCULAR: Positive for chest pain as above. RESPIRATORY: Positive for shortness of breath accompanying chest pain. No productive cough or wheezing. GASTROINTESTINAL: Denies nausea, vomiting, diarrhea, constipation. All other systems reviewed and negative. PHYSICAL EXAMINATION: VITAL SIGNS: Blood pressure is 144/78, heart rate 55, respirations 18, afebrile, satting 96% on room air. GENERAL: This is a slightly overweight middle-aged male. He is awake, alert, oriented x3, in no distress. HEAD AND NECK: No JVD, bruits, thrush or icterus. HEART: S1, S2, regular. No murmurs. LUNGS: Clear to auscultation bilaterally. ABDOMEN: Nontender, nondistended. Bowel sounds present. EXTREMITIES: Show no clubbing, cyanosis or edema, with positive pulses. NEUROLOGIC: He is ambulatory, maintains his coordination, does not exhibit any focal deficits. SKIN: Negative for rashes or ulcers. LABORATORY DATA: White count 6.8, hemoglobin 14.8, platelets 196. Sodium 140, potassium 4.1, chloride 106, CO2 of 26, BUN 20, creatinine 1.3, glucose 133. Troponin is 0. EKG, normal sinus rhythm with first-degree AV block. ASSESSMENT AND PLAN: This is a 66-year-old male with a medical history of hypertension, hyperlipidemia, previous transient ischemic attack, gout and chronic back pain. He presents with intermittent left-sided chest pain accompanied by shortness of breath. The patient is assigned to telemetry with the followin. Chest pain. We will obtain 3 sets of troponins, monitor on telemetry, and continue Plavix and atenolol. Presumably he is statin intolerant. The patient can be scheduled for an outpatient stress test if his chest pain does not recur and his troponin remains at 0. 2. Hypertension. Continue atenolol and lisinopril. 3. Chronic back pain. We will continue his home dose of oxycodone 40 t.i.d. in addition to hydrocodone p.r.n. 4. Gout. Continue allopurinol. 5. Hypothyroidism. Continue Synthroid. 6. Benign prostatic hyperplasia. Continue Flomax. The patient is a full code. Heparin has been used for prophylaxis. Total time for this admit including chart review, discussion with the ER physician, review of labs, imaging, EKG and previous available records was 36 minutes.
[2016-12-08] MEDS ORDERED: IV FLUIDS COMPLETED PRN (02:00)
[2016-12-08] MEDS: NITROGLYCERIN OINT 2% 1GM PACKET EXT SCH ×3 (04:00→15:23)
[2016-12-08] MEDS: HEPARIN SOD 5000 UNIT/0.5 ML CARP SQ SCH ×2 (06:00→13:15)
[2016-12-08] MEDS ORDERED: LEVOTHYROXINE 100 MCG TAB PO SCH (06:30)
[2016-12-08] MEDS ORDERED: OXYCODONE HCL 20 MG TABCR (OXYCONTIN) PO ONE (07:57)
[2016-12-08] MEDS ORDERED: CLONAZEPAM 0.5 MG TAB PO STA (08:30)
[2016-12-08] MEDS ORDERED: OXYCODONE HCL 20 MG TABCR (OXYCONTIN) PO SCH ×2 (09:00→16:00)
[2016-12-08] MEDS ORDERED: POTASSIUM CHLORIDE 10 MEQ TABCR PO SCH (09:00)
[2016-12-08] MEDS ORDERED: ALLOPURINOL 100 MG TAB PO SCH (09:00)
[2016-12-08] MEDS ORDERED: PANTOprazole SOD 40 MG TAB PO SCH (09:00)
[2016-12-08] MEDS ORDERED: OXYCODONE HCL 40 MG TABCR (OXYCONTIN) PO SCH (09:00)
[2016-12-08] MEDS ORDERED: BACLOFEN 10 MG TAB PO SCH ×2 (09:00→16:00)
[2016-12-08] MEDS ORDERED: CHOLECALCIFEROL 1000 INTER.UNIT TAB PO SCH (09:00)
[2016-12-08] MEDS ORDERED: OMEGA-3 (PURIFIED FISH OIL) 1 GM CAP PO SCH (09:00)
[2016-12-08] MEDS ORDERED: LISINOPRIL 20 MG TAB PO SCH (09:00)
[2016-12-08] MEDS ORDERED: CLONAZEPAM 1 MG TAB PO SCH ×2 (16:00→21:00)
--- NOTE | 2016-12-08 16:21 | ECHOCARDIOGRAM REPORT ---
*NOTICE TO RECEIVING CONSTITUTION PARTY AGENCY This information is strictly Confidential and protected under [place] law. [place] law prohibits you from making any further disclosure of this information unless further disclosure is expressly permitted by the written consent of the person to whom it pertains or is authorized by law. A general authorization for the release of medical or other information is not sufficient for this purpose. Hospital accepts no responsibility if the information is made available to any other person, INCLUDING THE PATIENT. Interpretation Summary * Name: LUIZ MOREJON Study Date: 12/08/2016 01:43 PM BP: 140/71 mmHg * Patient Location: [facility]\S\N288\S\1 HR: 55 * : 1950 (M/d/yyyy) Gender: Male Height: 69 in * Age: 66 yrs Ethnicity: [place] Weight: 220 lb * Ordering Physician: Itz Perla * Referring Physician: Self, Referred * Performed By: Jorge Israel RCS * * Reason For Study: Chest Pain/Pressure * BSA: 2.2 m2 * -- Conclusions -- * Left ventricular systolic function is normal. * The right ventricle is mild to moderately dilated. * Right ventricular systolic pressure is normal. * Grade I diastolic dysfunction, (abnormal relaxation pattern). Procedure Details * A complete two-dimensional transthoracic echocardiogram was performed (2D, M-mode, Doppler and color flow Doppler). Left Ventricle * The left ventricle is normal in size. * There is normal left ventricular wall thickness. * Ejection Fraction = 65-70%. * Left ventricular systolic function is normal. * Grade I diastolic dysfunction, (abnormal relaxation pattern). Right Ventricle * The right ventricle is mild to moderately dilated. * The right ventricular systolic function is normal. Atria * The left atrial size is normal. * Right atrial size is normal. Mitral Valve * The mitral valve anatomy is normal. * There is no mitral regurgitation noted. Tricuspid Valve * The tricuspid valve is not well visualized, but is grossly normal. * There is trace tricuspid regurgitation. * Right ventricular systolic pressure is normal. Aortic Valve * The aortic valve is normal in structure and function. * No hemodynamically significant valvular aortic stenosis. * There is no significant aortic regurgitation. Great Vessels * The aortic root is normal size. Pericardium/Pleural * There is no pericardial effusion. MMode 2D Measurements and Calculations IVSd 1.0 cm IVSs 1.3 cm LVIDd 5.1 cm LVIDs 2.9 cm LVPWd 1.0 cm LVPWs 1.3 cm IVS/LVPW 1.0 FS 42.2 % EDV(Teich) 121.2 ml ESV(Teich) 32.7 ml EF(Teich) 73.0 % EDV(cubed) 129.0 ml ESV(cubed) 24.9 ml EF(cubed) 80.7 % % IVS thick 26.6 % % LVPW thick 28.9 % LV mass(C)d 194.8 grams LV mass(C)dI 90.6 grams/m\S\2 LV mass(C)s 123.9 grams LV mass(C)sI 57.6 grams/m\S\2 CO(Teich) 5.0 l/min CI(Teich) 2.3 l/min/m\S\2 SV(Teich) 88.4 ml SI(Teich) 41.1 ml/m\S\2 CO(cubed) 5.9 l/min CI(cubed) 2.8 l/min/m\S\2 SV(cubed) 104.1 ml SI(cubed) 48.4 ml/m\S\2 Ao root diam 3.7 cm Ao root area 10.9 cm\S\2 ACS 2.0 cm LA dimension 3.9 cm LA/Ao 1.1 LVAd ap4 39.7 cm\S\2 LVLd ap4 8.6 cm EDV(MOD-sp4) 150.0 ml LVAs ap4 21.1 cm\S\2 LVLs ap4 7.5 cm ESV(MOD-sp4) 51.0 ml EF(MOD-sp4) 66.0 % LVAd ap2 38.1 cm\S\2 LVLd ap2 9.2 cm EDV(MOD-sp2) 133.0 ml LVAs ap2 20.0 cm\S\2 LVLs ap2 7.1 cm ESV(MOD-sp2) 48.0 ml EF(MOD-sp2) 63.9 % CO(MOD-sp4) 5.6 l/min CI(MOD-sp4) 2.6 l/min/m\S\2 SV(MOD-sp4) 99.0 ml SI(MOD-sp4) 46.0 ml/m\S\2 CO(MOD-sp2) 4.8 l/min CI(MOD-sp2) 2.3 l/min/m\S\2 SV(MOD-sp2) 85.0 ml SI(MOD-sp2) 39.5 ml/m\S\2 Doppler Measurements and Calculations MV E max chanell 57.7 cm/sec MV A max chanell 71.3 cm/sec MV E/A 0.81 MV P1/2t max chanell 63.3 cm/sec MV P1/2t 90.3 msec MVA(P1/2t) 2.4 cm\S\2 MV dec slope 205.1 cm/sec\S\2 MV dec time 0.33 sec Ao V2 max 135.0 cm/sec Ao max PG 7.3 mmHg Ao max PG (full) 2.8 mmHg LV V1 max PG 4.5 mmHg LV V1 max 106.0 cm/sec PA V2 max 97.2 cm/sec PA max PG 3.8 mmHg TR max chanell 209.0 cm/sec
[2016-12-08] MEDS ORDERED: KLN1 PO (16:34)
--- NOTE | 2016-12-08 16:41 | Discharge Instructions ---
Discharge Instructions Date of Service Dec 08, 2016. Admission Reason for Admission: Chest Pain Discharge Discharge Diagnosis / Problem: chest pain & shortness of breath - resolved; no evidence of heart attack Discharge Goals Goal(s): Learn about illness, Diagnostic testing, Therapeutic intervention Activity Recommendations Activity Limitations: resume your previous activity . Instructions / Follow-Up Instructions / Follow-Up From Dr. Perla: 1. I am concerned that the enlargement of the right side of your heart is due to untreated sleep apnea. Please discuss with Dr. Montilla finishing your sleep study. 2. No medications were changed and/or added during your stay. 3. Once I obtain your heart catheterization report from [facility] I will review this and contact you. 4. Please resume your clonazepam as previous. 5. Return to [facility] with any recurrent chest pain, shortness of breath, rapid heart beating, fever over 100.5 degrees, etc. 6. Please see Dr. Montilla within 1 week. Current Hospital Diet Patient's current hospital diet: AHA Diet (Heart Healthy) Discharge Diet Recommended Diet: AHA Diet (Heart Healthy) Procedures Procedures Performed: echocardiogram - Normal heart function. However, the right side of your heart is mildly enlarged. Heart valves are normal. Pending Studies Studies pending at discharge: no Laboratory Results Hemoglobin A1c Test 10/30/16 09:09 Range/Units Estimated Average Glucose 114 mg/dl Hemoglobin A1c 5.6 4.5-5.6 % Lipid Panel Test 10/30/16 09:09 Range/Units Triglycerides Level 319 H 0-150 mg/dl Cholesterol Level 175 0-200 mg/dl HDL Cholesterol 27 mg/dl Cholesterol/HDL Ratio 6.5 LDL Cholesterol, Calculated 84 mg/dl Medical Emergencies . Who to Call and When: Medical Emergencies: If at any time you feel your situation is an emergency, please call 911 immediately. . Non-Emergent Contact Non-Emergency issues call your: Primary Care Provider Call Non-Emergent contact if: temperature is above 100.5, your pain is worsening, your pain is unusual for you, your pain is concerning you, you have any medication questions . . "Provider Documentation" section prepared by Itz Perla. VTE Core Measure Inpt VTE Proph given/why not?: Unfractionated heparin SQ
[2016-12-08] MEDS ORDERED: CLOPIDOGREL BISULFATE 75 MG TAB PO SCH (21:00)
[2016-12-08] MEDS ORDERED: TAMSULOSIN HCL 0.4 MG CAP PO SCH (21:00)
--- NOTE | 2016-12-09 00:20 | Discharge Summary ---
Discharge Summary Date of Service Dec 09, 2016. Discharge Summary Admission Date: Dec 07, 2016 at 22:17 Discharge Date: Dec 08, 2016 Discharge Disposition: Home Principal Diagnosis: chest pain/pressure - resolved, ACS ruled out Problems/Secondary Diagnoses: 1. Hypertension. 2. Hyperlipidemia. 3. BPH. 4. Gout. 5. h/o TIAs. 6. Hypothyroidism. 7. recently diagnosed MACIEL. 8. right ventricular dilatation, suspect 2nd to #7. 9. anxiety disorder. Immunizations: Have You Had Influenza Vaccine: Yes History of Tetanus Vaccine?: ALLERGIC History of Pneumococcal: Yes History of Hepatitis B Vaccine: No Procedures: echocardiogram: -- Conclusions -- * Left ventricular systolic function is normal with normal wall motion. * The right ventricle is mild to moderately dilated. * Right ventricular systolic pressure is normal. * Grade I diastolic dysfunction, (abnormal relaxation pattern). Medication Reconciliation New Medications: Clonazepam (Clonazepam) 1 Mg Tab 1 MG PO BID, #30 TAB 0 Refills Continued Medications: Albuterol Hfa (Ventolin Hfa) 200 Puffs/05722 Mcg Aers 2-4 PUFFS INH Q6H PRN for Shortness of Breath, #1 INHALER Allopurinol (Zyloprim *) 100 Mg Tab 100 MG PO BID Atenolol (Tenormin) 50 Mg Tab 50 MG PO BID Baclofen (Lioresal) 10 Mg Tab 10 MG PO TID, TAB Cholecalciferol (Vitamin D3) 5,000 Unit Cap 1 CAP PO QAM Clopidogrel (Plavix) 75 Mg Tab 75 MG PO QPM Esomeprazole Magnesium (Nexium) 40 Mg Capcr 40 MG PO BID, CAP Fish Oil ([place]-3) 1 Ea Cap 1 CAP PO BID, CAP Hydrocodone/Acetaminophen 10MG/325MG ([place] 10MG/325MG) Tab 1-2 TABS PO Q4H PRN for Pain, TAB PRN PAIN Levothyroxine Sodium (Levothyroxine Sodium) 100 Mcg Tab 1 TAB PO QAM for 90 Days, #90 TAB 3 Refills Lisinopril (Lisinopril) 20 Mg Tab 1 TAB PO QAM Loratadine (Claritin) 10 Mg Cap 10 MG PO HS, CAP Meclizine Hcl (Meclizine Hcl) 25 Mg Tab 1 TAB PO TID PRN for VERTIGO for 10 Days, #30 TAB Multiple Vitamins W/ Minerals (Centrum Men) 1 Tab Tab 1 TAB PO QAM Ondansetron Hcl (Zofran) 4 Mg Tab 4 MG PO Q8H PRN for Nausea, TAB Oxycodone Hcl (Oxycontin) 40 Mg Tab 40 MG PO TID, TAB Oxymetazoline Hcl (Nasal Viola) 0.05 % Spr 1 SPRAY YURIY DAILY PRN for PRN Potassium Chloride (K-Tabs) 10 Meq Tab 1 TAB PO BID Probiotic Product (Probiotic) 1 Cap Cap 1 CAP PO QAM Tamsulosin HCl (Tamsulosin HCl) 0.4 Mg Cap 1 CAP PO HS Discharge Exam Physical Exam: General Appearance: WD/WN, no apparent distress ENT: pharynx normal Neck: no JVD Respiratory/Chest: chest non-tender, lungs clear, normal breath sounds, no respiratory distress, no accessory muscle use Cardiovascular: no gallop, no murmur, normal peripheral pulses, + bradycardia Abdomen / GI: normal bowel sounds, non tender, soft, no organomegaly Extremities: no pedal edema Neurologic/Psychiatric: alert, oriented x 3 Hospital Course HISTORY OF PRESENT ILLNESS: This is a 66-year-old male with a history of hypertension, hypothyroidism, hyperlipidemia and previous TIAs. The patient developed intermittent left-sided chest pain starting this morning, which he describes as a pressure-like sensation. The pain was nonradiating, associated with shortness of breath. Denies any nausea, vomiting or diaphoresis. He states that he had a normal cardiac catheterization in 2004 and a normal stress test within the last 5 years. It is also noted that the patient had a colonoscopy and endoscopy in 11/2015, which he states was normal other than colitis and mild gastritis. He stated that when he had labs drawn in early October, he was noted to be anemic with hemoglobin in the low 13s; however, it is 14.8 at the time of admission without taking iron or any other interventions. HOSPITAL COURSE: The patient had 3 sets of troponins all of which were normal. Telemetry was normal. EKG was without ischemic change (first degree AV block only) and chest x-ray was normal. ECHO demonstrated normal LV function and normal wall motion. The patient reported he had gone nearly 5 days without his clonazepam, a medication he had been taking for several years. He stated that in the past if he missed several days he would develop shortness of breath and also have chest symptoms. Once his clonazepam was restarted he immediately felt a relief of the above mentioned symptoms. No new medications were advised at time of discharge. However, he was encouraged to speak with Dr. Montilla about the merits of obtaining an outpatient stress test. Lastly, in light of the right ventricular dilatation seen on echo, the patient was recommended to complete his sleep study as the right heart findings may be due to untreated MACIEL. Total Time Spent: Greater than 30 minutes This includes examination of the patient, discharge planning, medication reconciliation, and communication with other providers. Discharge Instructions Please refer to the electronic Patient Visit Report (Discharge Instructions) for additional information. Follow-Up see Dr. Montilla within 1 week Additional Copies To Yaya Montilla M.D.
== END 2016-12-08 17:11 | disposition home or self-care (01) ==
LOC: ENRESERVTM → ENRESERVDT → C.EDB 20:14 → C.MED 22:17
PROVIDERS: ADMIT Internal Medicine; ATTEND Internal Medicine
DX: R07.9 Chest pain, unspecified (principal); E78.5 Hyperlipidemia, unspecified; I10 Essential (primary) hypertension; M10.9 Gout, unspecified; N40.0 Benign prostatic hyperplasia without lower urinary tract symptoms; E03.9 Hypothyroidism, unspecified; G47.33 Obstructive sleep apnea (adult) (pediatric); Z86.73 Personal history of transient ischemic attack (TIA), and cerebral infarction without residual deficits; Z82.49 Family history of ischemic heart disease and other diseases of the circulatory system

== ENCOUNTER → 2017-01-10 | Outpatient (CLI) | payer OTHER ==
[~2017-01-10] MED LIST changes: +KLN1 PO
--- NOTE | 2017-01-10 15:38 | DIAGNOSTIC IMAGING REPORT ---
LEFT PELVIS/UNILATERAL HIP 2-3VIEWS CLINICAL HISTORY: M45.9 pain COMPARISON: None. DISCUSSION: Postoperative changes to low lumbar spine consistent with laminectomy and fusion. No acute abnormality of the left hip. Minimal degenerative narrowing of the hip joint spaces bilaterally. No evidence for acetabular protrusion. There is no evidence for soft tissue swelling. IMPRESSION: Minimal degenerative changes of the hips bilaterally. Postoperative changes low lumbar spine. Electronically signed by: Markie Shoemaker M.D. 01/10/2017 3:36 PM Dictated Date/Time: 01/10/2017 3:35 PM
--- NOTE | 2017-01-10 15:39 | DIAGNOSTIC IMAGING REPORT ---
SI JOINTS 3 OR MORE VIEWS CLINICAL HISTORY: M45.9 pain COMPARISON STUDY: None FINDINGS: Findings consistent with a lumbar laminectomy and fusion. Sacral foramina are symmetric. Minimal degenerative change of the sacral iliac joints bilaterally. No evidence for acetabular protrusion. IMPRESSION: Postoperative and mild degenerative change. No acute process. Electronically signed by: Markie Shoemaker M.D. 01/10/2017 3:37 PM Dictated Date/Time: 01/10/2017 3:36 PM
== END | disposition home or self-care (01) ==
LOC: C.RAD1850 14:53
PROVIDERS: ATTEND Internal Medicine Rheumatology
DX: M45.9 Ankylosing spondylitis of unspecified sites in spine (principal)

== ENCOUNTER → 2017-02-13 | Outpatient (CLI) | payer OTHER ==
--- NOTE | 2017-02-14 06:04 | PAP/PSG TECHNICIAN REPORT ---
[facility] Automotive Service Manager Polysomnogram Report Study name: None Report date: 02/14/2017 Study date: 02/13/2017 Referring Physician: Dr. Mikhail Montilla Name: LUIZ MOBLEY Interpreting Physician: Yair Walker D.O. Date of : 1950 Automotive Service Manager: Jeane Price [facility]. Sex: Male Age: 66 StudyType: PSG PAP Weight: 239 lbs Height: 66 years, Height 5' 9.5" BMI: 34.78 Medications: Esomeprazole Magnesium 40 mg, Clonazepam 1 mg, Atenolol 50 mg, Lisinopril 20 mg, Meclizine 25 mg, Baclofen 10 mg, Magnesium 400 mg, Multi Vitamins, Nasal [place], Vitamin D-3 5000 units, Fish Oil 1000 mg, Ondansetron 4 mg, Allopurinol 100 mg, Plavix 75 mg, Hydrocodone-Acetaminophen 10-325 MG, Levoxyl 100 MCG, Oxycontin 40 mg, Potassium Chloride ER 10 MEQ, Probiotic Oral Capsule, Tamulosin 0.4 mg Patient History 66 yr. old male here for a new titration sleep study. Patients PSG was on 11/16/15 and had an AHI of 12.0, with 165 minutes of sleep. Patient has chronic pain. Parameters Monitored NPSG: E1-M2, E2-M1, Fp1-M2, Fp2-M1, F3-M2, F4-M2, F4-M1, C3-M2, C4-M2, C4-M1, O1-M2, O2-M2, O2-M1, T3-M2, T4-M1, P3-M2, P4-M1, CHIN1, CHIN2, HR, EKG, Legs, PFLOW, SNOR, FLOW, CFLOW, Tidal Volume, THOR, ABDO, SpO2, PLTH, CPRESS, ETCO2 Wave, ETCO2, pH Sleep Architecture Sleep Stages Time at Lights Off 11:07:42 PM STAGES Time (min.) TST (%) Time at Lights On 5:47:42 AM Wake 38.0 -- Total Recording Time (TRT) 401.00 min. N1 12.5 3 Total Sleep Period (TSP) 374.0 min. N2 336.5 93 Total Sleep Time (TST) 362.0min. N3 0.0 0 Awake Time 39.0 min. REM 13.0 4 Wake after Sleep Onset 22.5 min. Sleep Efficiency (SE) 91 % Sleep Onset Latency (DARRYN) 15.5 min. Number of Stage 1 Shifts None Awakenings 14 Stage Changes 51 Number of REM periods 2 REM 13.0 4 REM Latency 126.5 min. NREM 349.0 96 Body Position Analysis Supine Right Left Side Prone Vertical Total Sleep Time (min.) 0.0 0.0 0.0 0.00 0.0 399.6 Total Sleep Time (%) 0% 0% 0% 0 0% 100% Total Sleep Time REM (min.) 0.0 0.0 0.0 None 0.0 13.0 Total Sleep Time NREM (min.) 0.0 0.0 0.0 None 0.0 348.9 Intermittent Wake (min.) 0.0 0.0 0.0 None 0.0 37.6 Total Sleep Period (%) 0% None None None None None Arousals Myoclonus (PLM) * Events Count Index Events Count Index Spontaneous 9 1 Events Awake (PLMW) 3 4.7 Respiratory 3 0.8 Events Asleep w/ Arousal (PLMA) 2 0.3 PLM 2 0 Events Asleep w/o Arousal (PLMS) 29 4.8 Snoring 4 1 Total Asleep 31 5.1 Total 17 3 Total 34 5 Respiratory Analysis * CA OA MA CH H RERA Total Count 9 6 0 0 9 1 24 Index 1.5 1.0 0.0 0 1.5 0 4.1 Mean Duration 15.9 30.1 0.0 0.00 20.7 35.6 21.8 Longest Duration 26.1 52.3 0.0 0.00 0.0 35.6 52.3 Respiratory Event Summary Total Supine ~Supine Right Left Prone REM NREM Apneas Count 15 N/A 15 N/A N/A N/A 1 14 Index 2.5 N/A 2 N/A N/A N/A 5 2 Hypopneas (4% Desat) Count 9 N/A 9 N/A N/A N/A 1 8 Index 1.5 N/A 1 N/A N/A N/A 4.6 1.4 Apneas & All Hypopneas Count 24 N/A 24 N/A N/A N/A 2 22 Index 4.0 N/A 4 N/A N/A N/A 9.2 3.8 Respiratory Events (Bus And Rail Operator+All Hyp+RERA) Count 24 N/A 25 N/A N/A N/A 2 22 Index 4.1 N/A 4 N/A N/A N/A 9.2 4.0 Respiratory Related Arousal Count 3 N/A 5 N/A N/A N/A 1 4 Index 0.8 N/A 1 N/A N/A N/A 5 1 Snoring Analysis Supine Right Left Prone REM NREM Total Snore duration 0.9 min Snores count N/A N/A N/A N/A 0 34 34 Snore mean duration 1.6 Sec Snores index N/A N/A N/A N/A 0.0 5.8 5.6 TST with snoring (%) 0.3% Desaturation Event Summary: Minimum %SpO2 Event Count Mean/Min/Max Duration(sec.) Desaturation Index % Time In Bed > 90 20 30.1 / 14.8 / 60.0 3.2 95.0 86 - 90 3 30.8 / 24.0 / 36.0 9.4 4.8 81 - 85 0 N/A 0.0 0.1 76 - 80 0 N/A 0.0 0.1 71 - 75 0 N/A 0.0 0.0 66 - 70 0 N/A 0.0 0.0 61 - 65 0 N/A 0.0 0.0 56 - 60 0 N/A 0.0 0.0 51 - 55 0 N/A 0.0 0.0 < 50 0 N/A 0.0 0.0 Total REM NREM Awake <50% 0.0 min. 0.0 min. 0.0 min. 0.0 min. 51 - 60% 0.0 min. 0.0 min. 0.0 min. 0.0 min. 61 - 70% 0.0 min. 0.0 min. 0.0 min. 0.0 min. 71 - 80% 0.5 min. 0.0 min. 0.0 min. 0.5 min. 81 - 90% 19.5 min. 0.7 min. 14.0 min. 4.8 min. 91 - 100% 379.6 min. 12.3 min. 334.9 min. 32.4 min. Average 93 93 92 93 Minimum SpO2 75 88 86 75 Desaturation Event Index 3.5 4.6 2.8 9.5 # Desat. Events below 89% 6 1 4 1 Time(%) with Saturation below 89% 1.1 0.1 0.5 0.6 Time(min.) with Saturation below 89% 4.4 0.2 1.8 2.3 Time (mins) REM (mins) NREM (mins) % of TST SpO2 Below 90% 10 1 N9 1.3 SpO2 Below 88% 3 0 0 0 Heart Rate Analysis Min (bpm) Max (bpm) Average (bpm) Awake 46 63 50 NREM 45 56 49 REM 47 56 52 Overall 45 56 49 Supplemental O2 Values Minimum O2 level: None Value Start Time End Time Automotive Service Manager Comments Mr. Mobley slept in the upright position. No cardiac arrhythmia or PLMs noted. No bruxism noted. CPAP was initiated at +4 CMH2O room air and up-titrated to an optimal level of +9 CMH2O Cflex 1.. A medium C[employer] Simplus, was used during titration. Mr. Mobley did not wake to use the restroom during the night. Mr. Mobley stated, I did not sleep any better. The final report will be interpreted and signed by a sleep physician. The completed physician report will then be placed in the patient medical record. Therapy Event: Therapy (cm H20) 4 5 6 7 8 9 Total Time at Pressure (min.) 22.5 122.9 5.3 44.2 49.0 156.2 TST at Pressure (min.) 6.5 118.4 3.3 43.7 48.5 141.7 # Periods 1 1 1 1 1 1 Sleep Onset (min.) 15.5 0.0 0.0 0.0 0.0 0.0 REM Onset (min.) N/A 119.5 N/A N/A N/A 9.7 Sleep Efficiency % 28 96 62 98 99 90 Wakefulness (%) 71.3 3.7 37.8 1.1 1.0 9.3 Wakefulness (min.) 16.0 4.5 2.0 0.5 0.5 14.5 NREM 1 (%) 6.7 3.5 24.4 4.3 1.0 1.9 NREM 1 (min.) 1.5 4.3 1.3 1.9 0.5 3.0 NREM 2 (%) 22.1 91.2 37.8 94.6 98.0 81.8 NREM 2 (min.) 5.0 112.0 2.0 41.8 48.0 127.7 NREM 3 (%) 0.0 0.0 0.0 0.0 0.0 0.0 NREM 3 (min.) 0.0 0.0 0.0 0.0 0.0 0.0 REM (%) 0.0 1.6 0.0 0.0 0.0 7.0 REM (min.) 0.0 2.0 0.0 0.0 0.0 11.0 # Arousals 0 6 0 2 3 6 Arousal Index 0.0 3.0 0.0 2.7 3.7 2.5 # Snore 0 19 0 2 3 10 Snore Index 0.0 9.6 0.0 2.7 3.7 4.2 AHI 46.5 3.0 18.2 5.5 8.7 0.4 AHI Supine N/A N/A N/A N/A N/A N/A AHI Non-Supine 46.5 3.0 18.2 5.5 8.7 0.4 NREM AHI 46.5 2.1 18.2 5.5 8.7 0.5 REM AHI N/A 60.0 N/A N/A N/A 0.0 RDI 46.5 3.0 18.2 5.5 9.9 0.4 # Obstructive 1 1 0 2 1 1 # Central Ap 3 1 0 1 4 0 # Mixed 0 0 0 0 0 0 # Hypopneas 1 4 1 1 2 0 RERAS 0 0 0 0 1 0 Total Respiratory Events 5 6 1 4 8 1 Time Below SpO2 89.00% (min.) 0.0 1.2 0.0 0.8 0.1 0.0 Mean NREM SpO2 (%) 92 92 94 92 93 93 Mean REM SpO2 (%) N/A 91 N/A N/A N/A 94 Mean Sleep SpO2 (%) 92 92 94 92 93 93 Min NREM SpO2 (%) 89 87 90 86 88 89 Min REM SpO2 (%) N/A 88 N/A N/A N/A 91 Position Supine (min.) 0.0 0.0 0.0 0.0 0.0 0.0 Position Non-supine (min.) 6.5 118.4 3.3 43.7 48.4 141.7 LM Index Sleep 0.0 9.1 0.0 1.4 5.0 3.4 LM Index NREM 0.0 8.8 0.0 1.4 5.0 2.3 LM Index REM N/A 30.0 N/A N/A N/A 16.4 Mean Heart Rate (bpm) 50 51 50 49 48 48 Min Heart Rate (bpm) 49 48 48 47 46 45
--- NOTE | 2017-02-16 15:05 | POLYSOMNOGRAPH REPORT ---
REFERRING PHYSICIAN: Yaya Montilla MD CLINICAL DATA: The patient is a 66-year-old male who has a BMI of 34.78. He is referred by Dr. Yaya oMntilla for a CPAP titration. The patient had a diagnostic sleep study done on 11/15/2015 which showed obstructive sleep apnea with an apnea-hypopnea index of 12.0. SLEEP ARCHITECTURE: Shows a total sleep period of 374.0 minutes. The total sleep time was 362.0 minutes. The sleep efficiency was normal at 91%. The sleep onset latency was 15.5 minutes. The REM latency was prolonged to 126.5 minutes. Sleep consisted of stage N1 3%, stage N2 93%, stage N3 0%, stage REM 4%. AROUSAL DATA: The patient had a total of 17 arousals including 9 spontaneous, 3 respiratory, 2 PLM, and 4 snoring arousals. The arousal index was 3. PERIODIC LIMB MOVEMENTS DATA: The patient had 31 periodic limb movements of sleep for an index of 5.1. There were 2 arousals associated with limb movements for a PLM arousal index of 0.3. ELECTROCARDIOGRAM: The patient had an underlying normal sinus rhythm. The minimum heart rate was 45 and a maximum was 56. The average heart rate was 49 per minute. No arrhythmias were noted. RESPIRATORY DATA: The patient's nocturnal events were treated with nasal CPAP, which was titrated to a final pressure of 9 cm. The patient had a total of 9 central apneas, 6 obstructive apneas, and 9 hypopneas. The 4% rule was used for scoring hypopneas. The longest apnea was 52.3 seconds. The mean hypopnea was 20.7 seconds. The apnea-hypopnea index was 4.0. At the final pressure of 9 cm, the apnea-hypopnea index was 0.4. He was at this pressure for more than 2-1/2 hours. OXIMETRY DATA: The average saturation was 93%. The minimum saturation was 75%, this was transient. There was only a total of 4.4 minutes with saturations less than 89%. SIGNAL PROCESSING ENGINEER'S COMMENTS: Mr. Mobley slept in the upright position. No bruxism was noted. CPAP was initiated at 4 cm and up titrated to an optimal level of 9 cm with C-Flex 1. A medium Style [employer] Simplus was used during the titration. Following the study, patient indicated he did not sleep any better than he does at home. IMPRESSION: Obstructive sleep apnea - resolved with nasal CPAP at 9 cm. COMMENTS: The patient seemingly tolerated CPAP well. His sleep efficiency was normal. His sleep architecture did show a predominance of stage N2 sleep with minimal stage REM. He had relatively few awakenings and arousals. His oxygenation was normal for most of the night with just some transient desaturations. RECOMMENDATIONS: 1. It is advised that patient be started on nasal CPAP at 9 cm with C-Flex set at 1. 2. It is advised that he be ordered a [employer] and [place] Analysis Simplus mask, size medium. 3. Weight reduction is advised in light of the elevation of body mass index at 34.78. 4. The patient should be followed up between day 31 and day 90 after receiving his CPAP. This is mandated by insurance requirements. [facility]
== END | disposition home or self-care (01) ==
LOC: C.NEUR 20:00
PROVIDERS: ATTEND Internal Medicine
DX: G47.33 Obstructive sleep apnea (adult) (pediatric) (principal)

== ENCOUNTER → 2017-09-26 | Outpatient (CLI) | payer OTHER ==
[~2017-09-26] MED LIST changes: +CLON1TAB10 PO; +LISI-726 PO; -LSN20 PO
--- NOTE | 2017-09-26 14:20 | DIAGNOSTIC IMAGING REPORT ---
ABDOMEN 2VIEW W/PA CHEST RTN CLINICAL HISTORY: R10.9 Abdominal painR14.0 Abdominal [id number] nausea COMPARISON STUDY: No previous studies for comparison. FINDINGS: The soft tissues, psoas shadows, renal outlines and intestinal gas pattern appear normal. There is no evidence for bowel obstruction. There is no evidence for free intraperitoneal air. No abnormal abdominal calcifications are seen. A frontal view of the chest was performed and is unremarkable. Postoperative changes consistent with fusion of the lumbar spine. IMPRESSION: No acute process. The above report was generated using voice recognition software. It may contain grammatical, syntax or spelling errors. Electronically signed by: Markie Shoemaker M.D. 09/26/2017 2:19 PM Dictated Date/Time: 09/26/2017 2:18 PM
[2017-09-26 16:34] LABS: BASO % 0.5 %; BASO ABS # 0.03 K/uL (0-0.2); EOS % 1.9 %; EOS ABS # 0.12 K/uL (0-0.5); HEMATOCRIT 43.1 % (42-52); HEMOGLOBIN 15.4 g/dL (14.0-18.0); IG# 0.02 K/uL (0.00-0.02); LYMPH % 43.3 %; LYMPH ABS # 2.76 K/uL (1.2-3.4); MEAN CELL VOLUME 90.2 fL (80-100); MEAN CORPUSCULAR HEMOGLOBIN 32.2 pg (25-34); MEAN CORPUSCULAR HGB CONC 35.7 g/dl (32-36); MEAN PLATELET VOLUME 10.4 fL (7.4-10.4); MONO % 7.7 %; MONO ABS # 0.49 K/uL (0.11-0.59); NEUT % 46.3 %; NEUT ABS # 2.96 K/uL (1.4-6.5); PLATELET COUNT 169 K/uL (130-400); RED CELL DISTRIBUTION WIDTH CV 13.4 % (11.5-14.5); RED CELL DISTRIBUTION WIDTH SD 43.9 fL (36.4-46.3); WHITE BLOOD COUNT 6.38 K/uL (4.8-10.8)
[2017-09-26 18:01] LABS: ALT/SGPT 126 U/L (12-78); AST/SGOT 71 U/L (15-37); BLOOD UREA NITROGEN 15 mg/dl (7-18); CALCIUM 9.2 mg/dl (8.5-10.1); CARBON DIOXIDE 29 mmol/L (21-32); CREATININE 1.18 mg/dl (0.60-1.40); GLUCOSE 119 mg/dl (70-99); LIPASE 132 U/L (73-393); POTASSIUM 4.2 mmol/L (3.5-5.1); SODIUM 136 mmol/L (136-145); TOTAL PROTEIN 8.2 gm/dl (6.4-8.2)
[2017-09-26 18:02] LABS: ALKALINE PHOSPHATASE 93 U/L (45-117)
== END | disposition home or self-care (01) ==
LOC: C.RAD1850 13:55
PROVIDERS: ATTEND Registered Nurse
DX: R14.0 Abdominal distension (gaseous) (principal); R10.9 Unspecified abdominal pain

== ENCOUNTER → 2017-10-29 | Outpatient (CLI) | payer OTHER ==
[~2017-10-29] MED LIST changes: -CLON1TAB10 PO; -LISI-726 PO; +LSN20 PO
[2017-10-29 13:41] LABS: ALBUMIN 3.7 gm/dl (3.4-5.0); TOTAL PROTEIN 7.5 gm/dl (6.4-8.2)
== END | disposition home or self-care (01) ==
LOC: C.LAB1850 12:07
PROVIDERS: ATTEND Registered Nurse
DX: R93.5 Abnormal findings on diagnostic imaging of other abdominal regions, including retroperitoneum (principal)

== ENCOUNTER → 2017-11-07 | Outpatient (CLI) | payer OTHER ==
--- NOTE | 2017-11-07 10:00 | DIAGNOSTIC IMAGING REPORT ---
BILIARY ABDOMEN LIMITED CLINICAL HISTORY: 67 years-old Male presenting with R11.0 BzztteV53.9 Abdominal painR74.8 Elevated liver enzymes. TECHNIQUE: Real-time grayscale and limited color Doppler ultrasound imaging of the abdomen limited to the right upper quadrant was performed. COMPARISON: 04/23/[address] from 11/20/2012. FINDINGS: Pancreas: Largely obscured due to overlying bowel gas. Liver: Markedly hyperechogenic parenchyma with obscuration of the right hemidiaphragm, likely indicating marked hepatic steatosis. The liver measures 20 cm in maximal sagittal dimension. No sonographic evidence of hepatic mass. Main portal vein patent with normal directional flow. Biliary: No intrahepatic biliary ductal dilatation. Common bile duct measures up to 5 mm in diameter. Gallbladder: Gallbladder sludge. No evidence of gallstones, gallbladder wall thickening, gallbladder distention, or pericholecystic fluid or inflammatory change. Right kidney: Normal in appearance. No hydronephrosis. Ascites: None. IMPRESSION: 1. Hepatic steatosis. Correlate with liver function tests to exclude steatohepatitis as a cause for abdominal pain. 2. Gallbladder sludge. No cholelithiasis or cholecystitis. Electronically signed by: Yaya Lerner M.D. 11/07/2017 9:59 AM Dictated Date/Time: 11/07/2017 9:58 AM
[2017-11-12 15:09] LABS: ANA SCREEN TC 249X NEGATIVE (NEGATIVE); HEPATITIS B CORE IGM TC51854R NON-REACTIVE (NON-REACTIVE)
== END | disposition home or self-care (01) ==
LOC: C.ULTRBC 09:13
PROVIDERS: ATTEND Registered Nurse
DX: K76.0 Fatty (change of) liver, not elsewhere classified (principal); K82.8 Other specified diseases of gallbladder; R74.8 Abnormal levels of other serum enzymes

== ENCOUNTER → 2017-11-25 | Outpatient (CLI) | payer OTHER | END | disposition home or self-care (01) | LOC: C.LABPBG 15:05 | PROVIDERS: ATTEND Internal Medicine | DX: Z00.00 Encounter for general adult medical examination without abnormal findings (principal) ==

== ENCOUNTER 2017-12-08 21:02 | Emergency (ER) | payer OTHER ==
[~2017-12-08] VITALS: Ht 175.3 cm; Wt 115.5 kg
[2017-12-08 21:13] VITALS: TEMP 36.9; Ht 175.3 cm; Wt 115.5 kg
[2017-12-08] MEDS ORDERED: LISINOPRIL 20 MG TAB PO STA (21:28)
--- NOTE | 2017-12-08 21:41 | EMERGENCY ROOM VISIT NOTE ---
History Report prepared by Guillermina: Star Zhou Under the Supervision of: Dr. Berlin Estevez M.D. First contact with patient: 21:24 Chief Complaint: HYPERTENSION Stated Complaint: HIGH BLOOD PRESSURE 201/101 200/100 History of Present Illness The patient is a 67 year old male who presents to the Emergency Room with complaints of waxing/waning hypertension that started three days ago. The patient states that a week ago he had his Lisinopril increased from 20 mg to 30mg. He reports that he was told to take an extra Lisinopril if he experiences hypertension. The patient states that three days ago, he noticed that he started to experience hypertension, with a reading of 201/101. He states that he has never been that high. The patient states that his blood pressure has been fluctuating over the last couple of days, but he reports that he has never been back to a normal reading. He states that he took his blood pressure two days ago, which was 200/100. The patient states that his blood pressure yesterday morning was 150s systolically. He states that today his blood pressure was 179/89. The patient states that he took his Lisinopril and an extra 5 mg for his hypertension. He reports that his pressure was 155/72 two hours later. The patient states that four hours after taking his medication, his pressure was back up to 197/91. He states that he is concerned he is having a stroke since his blood pressure is typically 135 systolically. The patient denies any urinary symptoms, chest pain, and increased shortness of breath from baseline. He reports a history of cardiomegaly, TIA, cirrhosis of the liver, abnormal kidney function, and "sludge in my gallbladder". Source of History: patient Onset: three days ago Position: other (global) Quality: other (201/101) Timing: waxes/wanes Modifying Factors (Relieving): other (Lisinopril) Associated Symptoms: No chest pain, No urinary symptoms Review of Systems See HPI for pertinent positives & negatives. A total of 10 systems reviewed and were otherwise negative. 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 (18) REFLUX ESOPHAGITIS (19) SPINAL STENOSIS, LUMBAR REG, W/OUT NEUROGENIC CLAUDICATION (20) STOMACH ULCER NOS Family History Heart disease Social History Smoking Status: Never Smoker Marital Status: Housing Status: lives with family Current/Historical Medications Scheduled Allopurinol (Allopurinol), 100 MG PO BID Atenolol (Tenormin), 50 MG PO BID Baclofen (Lioresal), 10 MG PO TID Cholecalciferol (Vitamin D3), 1 CAP PO QAM Clonazepam (Klonopin), 1 MG PO BID Clopidogrel (Plavix), 75 MG PO QPM Esomeprazole Magnesium (Nexium), 40 MG PO BID Fish Oil ([place]-3), 1 CAP PO BID Levothyroxine Sodium (Levothyroxine Sodium), 1 TAB PO QAM Lisinopril (Lisinopril), 1 TAB PO QAM Multiple Vitamins W/ Minerals (Centrum Men), 1 TAB PO QAM Oxycodone Hcl (Oxycontin), 40 MG PO TID Potassium Chloride (K-Tabs), 1 TAB PO BID Probiotic Product (Probiotic), 1 CAP PO QAM Tamsulosin HCl (Tamsulosin HCl), 1 CAP PO HS Scheduled PRN Albuterol Hfa (Ventolin Hfa), 2-4 PUFFS INH Q6H PRN for Shortness of Breath Meclizine Hcl (Meclizine Hcl), 1 TAB PO TID PRN for VERTIGO Ondansetron Hcl (Zofran), 4 MG PO Q8H PRN for Nausea Oxymetazoline Hcl (Nasal [place]), 1 SPRAY YURIY DAILY PRN for PRN Allergies Coded Allergies: Tetanus Toxoid (Verified Allergy, Severe, HIVES,SWELLING, 12/08/17) Prednisone (Verified Adverse Reaction, Intermediate, gastric ulcer, ) Physical Exam Vital Signs Date Time Temp Pulse Resp B/P (MAP) Pulse Ox O2 Delivery O2 Flow Rate FiO2 12/08/17 23:30 51 10 150/79 93 Room Air 12/08/17 23:01 52 12/08/17 23:00 53 15 151/81 94 Room Air 12/08/17 22:42 50 17 95 12/08/17 22:41 176/85 12/08/17 22:32 54 19 94 Room Air 12/08/17 22:31 123/80 12/08/17 22:02 55 14 93 12/08/17 22:01 147/84 12/08/17 21:52 167/93 12/08/17 21:13 36.9 66 18 182/82 95 Room Air Physical Exam GENERAL: Patient is in no acute distress. HEENT: No acute trauma, normocephalic atraumatic, mucous membranes moist, no nasal congestion, no scleral icterus. NECK: No stridor, no adenopathy, no meningismus, trachea is midline. LUNGS: Clear to auscultation bilaterally, no wheeze, no rhonchi, breath sounds equal. HEART: Without murmurs gallops or rubs, regular rate and rhythm. ABDOMEN: Soft, nontender, bowel sounds positive, no hernias, no peritonitis. EXTREMITIES: No cyanosis or edema, full range of motion of all the joints without pain or difficulty, no signs for acute trauma. NEUROLOGIC: Oriented x 3, no acute motor or sensory deficits, no focal weakness , no cerebellar dysfunction. SKIN: No rash, no jaundice, no diaphoresis. Medical Decision & Procedures Laboratory Results 12/08/17 21:55 12/08/17 21:55 Test 12/08/17 21:55 12/08/17 22:36 Red Blood Count 4.69 M/uL (4.7-6.1) Mean Corpuscular Volume 88.5 fL (80-100) Mean Corpuscular Hemoglobin 32.6 pg (25-34) Mean Corpuscular Hemoglobin Concent 36.9 g/dl (32-36) RDW Standard Deviation 42.8 fL (36.4-46.3) RDW Coefficient of Variation 13.3 % (11.5-14.5) Mean Platelet Volume 9.7 fL (7.4-10.4) Anion Gap 6.0 mmol/L (3-11) Est Creatinine Clear Calc Drug Dose 65.7 ml/min Estimated GFR () 62.1 Estimated GFR (Non- 53.6 BUN/Creatinine Ratio 13.3 (10-20) Calcium Level 8.7 mg/dl (8.5-10.1) Total Bilirubin 0.4 mg/dl (0.2-1) Aspartate Amino Transf (AST/SGOT) 67 U/L (15-37) Alanine Aminotransferase (ALT/SGPT) 104 U/L (12-78) Alkaline Phosphatase 91 U/L (45-117) Troponin I < 0.015 ng/ml (0-0.045) Total Protein 7.6 gm/dl (6.4-8.2) Albumin 3.7 gm/dl (3.4-5.0) Globulin 3.9 gm/dl (2.5-4.0) Albumin/Globulin Ratio 1.0 (0.9-2) Thyroid Stimulating Hormone (TSH) 1.450 uIu/ml (0.300-4.500) Free Thyroxine 1.25 ng/dl (0.80-1.60) Urine Color YELLOW Urine Appearance CLEAR (CLEAR) Urine pH 7.5 (4.5-7.5) Urine Specific [place] 1.010 (1.000-1.030) Urine Protein 1+ (NEG) Urine Glucose (UA) NEG (NEG) Urine Ketones NEG (NEG) Urine Occult Blood NEG (NEG) Urine Nitrite NEG (NEG) Urine Bilirubin NEG (NEG) Urine Urobilinogen NEG (NEG) Urine Leukocyte Esterase NEG (NEG) Urine WBC (Auto) 0 /hpf (0-5) Urine RBC (Auto) 0-4 /hpf (0-4) Urine Hyaline Casts (Auto) 0 /lpf (0-5) Urine Epithelial Cells (Auto) 0-5 /lpf (0-5) Urine Bacteria (Auto) NEG (NEG) Laboratory results reviewed by me. Medications Administered Medications (Trade) Dose Ordered Sig/Martir Route Start Time Stop Time Status Last Admin Dose Admin Lisinopril (Zestril Tab) 20 mg NOW STAT PO 12/08/17 21:28 12/08/17 21:33 DC 12/08/17 21:48 20 MG ECG Per My Interpretation Indication: other (hypertension) Rate (beats per minute): 55 Rhythm: sinus bradycardia Findings: 1st degree AV block, other (inferior infarct, no PVCs, no ST elevations) ED Course 2131: The patient was evaluated in room B02. A complete history and physical exam was performed. 2127: Ordered Lisinopril 20 mg PO. 2318: Reevaluated the patient. Discussed results and discharge instructions: He verbalized understanding and agreement. The patient is ready for discharge. Medical Decision The patient is a 67 year old male who presents to the Emergency Room with complaints of waxing/waning hypertension that started three days ago. Differential diagnoses considered include renal failure, essential hypertension , electrolyte imbalance, cardiac ischemia, infection, anemia, and thyroid disorder. There is no leukocytosis or concerning anemia. No significant electrolyte abnormality, kidney failure. LFTs very mildly elevated. The patient appears to be in a euthyroid state. EKG shows a sinus bradycardia, no acute ischemia. Cardiac enzyme testing 1 is not consistent with acute cardiac injury. Urinalysis does not show infection. On exam, the patient was resting comfortably, he was in no distress. The patient received oral lisinopril, his blood pressure has improved. I think the patient is stable for discharge. I will have him increase his lisinopril to 40 mg daily. He will discuss his blood pressure issues with his doctor tomorrow and they can make any further changes to his meds if required. The patient was reassured. Medication Reconcilliation Current Medication List: was personally reviewed by me Blood Pressure Screening Patient's blood pressure: Elevated blood pressure Blood pressure disposition: Referred to PCP Impression Primary Impression: HTN (hypertension) Scribe Attestation The scribe's documentation has been prepared under my direction and personally reviewed by me in its entirety. I confirm that the note above accurately reflects all work, treatment, procedures, and medical decision making performed by me. Departure Information Dispostion Home / Self-Care Referrals Yaya Montilla M.D. (PCP) Forms HOME CARE DOCUMENTATION FORM, IMPORTANT VISIT INFORMATION, WORK / SCHOOL INSTRUCTIONS Patient Instructions My [facility] [employer] Additional Instructions increase the Lisinopril dosing to 40 mg every day talk with your chilo md--call tomorrow for an appt lab testing today was ok return for worsening symptoms
[2017-12-08] MEDS ORDERED: CLON1TAB3 PO (21:56)
[2017-12-08] MEDS ORDERED: ALL100 PO (21:56)
[2017-12-08 22:11] LABS: HEMATOCRIT 41.5 % (42-52); HEMOGLOBIN 15.3 g/dL (14.0-18.0); MEAN CELL VOLUME 88.5 fL (80-100); MEAN CORPUSCULAR HEMOGLOBIN 32.6 pg (25-34); MEAN CORPUSCULAR HGB CONC 36.9 g/dl (32-36); MEAN PLATELET VOLUME 9.7 fL (7.4-10.4); PLATELET COUNT 167 K/uL (130-400); RED CELL DISTRIBUTION WIDTH CV 13.3 % (11.5-14.5); RED CELL DISTRIBUTION WIDTH SD 42.8 fL (36.4-46.3); WHITE BLOOD COUNT 5.66 K/uL (4.8-10.8)
[2017-12-08 22:40] LABS: ALBUMIN 3.7 gm/dl (3.4-5.0); ALT/SGPT 104 U/L (12-78); BLOOD UREA NITROGEN 18 mg/dl (7-18); CALCIUM 8.7 mg/dl (8.5-10.1); CARBON DIOXIDE 28 mmol/L (21-32); CREATININE 1.35 mg/dl (0.60-1.40); GLUCOSE 150 mg/dl (70-99); POTASSIUM 4.1 mmol/L (3.5-5.1); SODIUM 133 mmol/L (136-145)
[2017-12-08 22:50] LABS: ALKALINE PHOSPHATASE 91 U/L (45-117); AST/SGOT 67 U/L (15-37); TOTAL PROTEIN 7.6 gm/dl (6.4-8.2)
[2017-12-08 23:30] VITALS: BP 150/79; PULSE 51; O2SAT 93
== END 2017-12-08 23:54 | disposition home or self-care (01) ==
LOC: C.EDB 21:02
DX: I11.9 Hypertensive heart disease without heart failure (principal); E11.9 Type 2 diabetes mellitus without complications; E78.5 Hyperlipidemia, unspecified; K76.9 Liver disease, unspecified; F41.9 Anxiety disorder, unspecified; Z86.73 Personal history of transient ischemic attack (TIA), and cerebral infarction without residual deficits; Z88.7 Allergy status to serum and vaccine; Z88.8 Allergy status to other drugs, medicaments and biological substances; Z82.49 Family history of ischemic heart disease and other diseases of the circulatory system

== ENCOUNTER → 2017-12-13 | Outpatient (CLI) | payer OTHER ==
[~2017-12-13] MED LIST changes: +CLON1TAB3 PO; -HYDR-4079 PO; -KLN1 PO; -LORA10CA2 PO; +SINCALIDE INJ 2.2 MCG in SODIUM CHLORIDE 0.9% 100ML 100 ML IV ONE
--- NOTE | 2017-12-13 13:39 | DIAGNOSTIC IMAGING REPORT ---
NUCLEAR MEDICINE HEPATOBILIARY SCAN WITH EJECTION FRACTION ANALYSIS CLINICAL HISTORY: ABD PAIN,GALLBLADDER SLUDGE COMPARISON STUDY: Biliary ultrasound dated 11/07/2017 FINDINGS: The patient was injected with 5.4 mCi of technetium 99m Choletec. Anterior imaging was performed. Hepatic excretion was unremarkable. The gallbladder was first visualized on the 10 minute image. At 1 hour, the patient was administered 2.2 mcg of sincalide utilizing a 30 minute intravenous infusion. There was normal patches of activity into small bowel. The gallbladder ejection fraction was normal during 94%. IMPRESSION: Normal study. No evidence of cystic duct obstruction. Normal gallbladder ejection fraction of 94%. Electronically signed by: Florentino Jeong M.D. 12/13/2017 1:38 PM Dictated Date/Time: 12/13/2017 12:53 PM
== END | disposition home or self-care (01) ==
LOC: C.NUCL 10:07
PROVIDERS: ATTEND Registered Nurse
DX: K82.8 Other specified diseases of gallbladder (principal); R11.0 Nausea; R10.9 Unspecified abdominal pain

== ENCOUNTER → 2018-04-15 | Outpatient (CLI) | payer OTHER ==
[~2018-04-15] MED LIST changes: -CLON1TAB3 PO; +CLON1TAB5 PO; +LISI-726 PO; -LSN20 PO; -SINCALIDE INJ 2.2 MCG in SODIUM CHLORIDE 0.9% 100ML 100 ML IV ONE
== END | disposition home or self-care (01) ==
LOC: C.LABPBG 13:11
PROVIDERS: ATTEND Internal Medicine
DX: N40.1 Benign prostatic hyperplasia with lower urinary tract symptoms (principal)